=== PATIENT | female | born 1945 | race Caucasian/White ===

== ENCOUNTER 2017-03-28 15:26 | Emergency (ER) | payer MEDICARE, BC ==
--- NOTE | 2017-03-28 16:11 | UC ---
Hip/Pelvis Pain - HPI Summary HPI Summary: 72 Y/O female presents with C/O L hip and L arm pain after a ground level fall on 03/27/17. States was initially "sore" but today has increased pain and difficulty ambulating. Concerned about L arm pain due to previous fracture. Has full range of motion in LUE, pain on palpation. Denies LOC, dyspnea or other complaint. Medical history and medications were reviewed at this visit. - History Of Current Complaint Hx Obtained From: Patient Onset/Duration: Gradual Onset Timing: Constant Severity Initially: Moderate Severity Currently: Moderate Pain Intensity: 3 Pain Scale Used: 0-10 Numeric Location: Discrete At: - Hip and upper arm L side. Character Of Pain: Sharp, Aching Aggravating Factor(s): Movement, Weight Bearing Alleviating Factor(s): Rest, OTC Medications Associated Signs And Symptoms: Positive: Bruising - Risk Factors Septic Arthritis Risk Factor: Negative <Karen Perea - Last Filed: 03/28/17 17:05> <Vicky Krishna - Last Filed: 03/28/17 17:37> - History Of Current Complaint Chief Complaint: UCGeneralIllness Stated Complaint: FALL Time Seen by Provider: 03/28/17 15:54 - Allergies/Home Medications Allergies/Adverse Reactions: Allergies Allergy/AdvReac Type Severity Reaction Status Date / Time No Known Allergies Allergy Verified 03/18/17 10:20 PMH/Surg Hx/FS Hx/Imm Hx Previously Healthy: Yes Cancer History: Breast Cancer - R side - Surgical History Surgical History: Yes Surgery Procedure, Year, and Place: Right Breast CA 1996, Lumpectomy Right Breast with Lymphnodes removed axillary area; bunionectomy 10/2000 & 2013 Bilat feet; Bilat knee replacements 2006; Cataract SX 2010 to both eyes; - Social History Alcohol Use: Occasionally Substance Use Type: None Smoking Status (MU): Never Smoked Tobacco <Karen Perea - Last Filed: 03/28/17 17:05> Review of Systems Constitutional: Negative Skin: Bruising - Mild bruising to L hip Eyes: Negative ENT: Negative Respiratory: Negative Cardiovascular: Negative Gastrointestinal: Negative Genitourinary: Negative Motor: Negative Neurovascular: Negative Musculoskeletal: Other: - Pain in L hip with weight bearing Neurological: Negative Psychological: Negative Is Patient Immunocompromised?: No All Other Systems Reviewed And Are Negative: Yes <EliazarKaren - Last Filed: 03/28/17 17:05> Physical Exam Triage Information Reviewed: Yes Appearance: Well-Appearing Vital Signs: Initial Vital Signs Temp 97.0 F 03/28/17 15:30 Pulse 73 03/28/17 15:30 Resp 18 03/28/17 15:30 BP 119/66 03/28/17 15:30 Pulse Ox 96 03/28/17 15:30 Vital Signs Reviewed: Yes Neck exam: Normal Neck: Positive: Supple Respiratory Exam: Normal Respiratory: Positive: Lungs clear, Normal breath sounds, No respiratory distress Cardiovascular Exam: Normal Cardiovascular: Positive: RRR Abdominal Exam: Normal Abdomen Description: Positive: Nontender Bowel Sounds: Positive: Present Musculoskeletal Exam: Normal Musculoskeletal: Positive: Strength Intact, No Edema Neurological Exam: Normal Neurological: Positive: Alert Psychological Exam: Normal Skin Exam: Normal <EliazarKaren - Last Filed: 03/28/17 17:05> Vital Signs: Initial Vital Signs Temp 97.0 F 03/28/17 15:30 Pulse 73 03/28/17 15:30 Resp 18 03/28/17 15:30 BP 119/66 03/28/17 15:30 Pulse Ox 96 03/28/17 15:30 <Vicky Krishna - Last Filed: 03/28/17 17:37> Hip Injury Course/Dx - Differential Dx/Diagnosis Differential Diagnosis/HQI/PQRI: Contusion, Dislocation, Fracture, Sprain, Strain Provider Diagnoses: Contusion <EliazarKaren - Last Filed: 03/28/17 17:05> Discharge <Karen Perea - Last Filed: 03/28/17 17:05> <Vicky Krishna - Last Filed: 03/28/17 17:37> - Discharge Plan Condition: Stable Disposition: HOME Patient Education Materials: Contusion in Adults (ED) Referrals: Kade Rodrigues MD [Primary Care Provider] - Eugenie Rodriguez MD [Medical Doctor] - Additional Instructions: Your x-rays of your L arm and L hip showed no fractures or other injuries. You may take Ibuprofen 600mg every 8 hours as needed for pain. Take with food. May use ice and heat as needed for pain or discomfort. Follow up with orthopedic physician Dr Rodriguez if pain worsens or does not improve over the next week. Return to the urgent care as needed. Attestation Statement User Type: Provider - I was available for consult. This patient was seen by the [facility]. The patient was not presented to, seen by, or examined by me. -Beth <Vicky Krishna - Last Filed: 03/28/17 17:37>
--- NOTE | 2017-03-28 17:19 | RAD ---
Indication: Left hip pain, fall 2 views of the left hip and a single view of the pelvis demonstrates no fracture. Pelvic ring is intact. Sacroiliac joints are unremarkable. IMPRESSION: No fracture of the left hip is noted.
--- NOTE | 2017-03-28 17:20 | RAD ---
Indication: Left arm pain. 2 views of the left humerus demonstrates no fracture. No other bone or joint abnormality is identified. IMPRESSION: No fracture of the left humerus is noted.
[2017-03-28 17:39] VITALS: BP 102/74
== END 2017-03-28 17:50 | disposition home or self-care (01) ==
LOC: UCEAST 15:26
DX: S70.02XA Contusion of left hip, initial encounter (principal); S40.022A Contusion of left upper arm, initial encounter; W18.30XA Fall on same level, unspecified, initial encounter; Y92.9 Unspecified place or not applicable; Z85.3 Personal history of malignant neoplasm of breast
CPT/HCPCS: 99212; G0463